=== PATIENT | male | born 1975 | race Caucasian/White ===

== ENCOUNTER 2021-05-21 11:44 | Inpatient (IN) | payer OTHER ==
[~2021-05-21] VITALS: Ht 180.3 cm; Wt 77.1 kg
[2021-05-21 13:01] LABS: RED BLOOD COUNT 3.9 M/UL (4.20-5.50); WHITE BLOOD COUNT 7.7 K/UL (4.5-11.0)
[2021-05-21 14:53] LABS: BUN/CREATININE RATIO 22 (0-10)
[2021-05-22] MEDS ORDERED: GABAPENTIN800 MG PO (09:46)
[2021-05-22] MEDS ORDERED: LISINOPRIL-HCT1 EAC1 PO (09:47)
[2021-05-22] MEDS ORDERED: TOPROL XL50 MG PO (09:48)
--- NOTE | 2021-05-23 06:15 | NUR ---
CALLED LAB TO ASK ABOUT THE VANC TROUGH AT 0610. STATED IT WAS DRAWN BUT SHE HASN'T RECEIVED IT YET.
[2021-05-23 06:31] LABS: HEMOGLOBIN 10.1 gm/dl (14.0-17.5); RED BLOOD COUNT 3.7 M/UL (4.20-5.50); WHITE BLOOD COUNT 8.6 K/UL (4.5-11.0)
[2021-05-23 07:23] LABS: BUN/CREATININE RATIO 14 (0-10)
[2021-05-24] MEDS ORDERED: CLOBETASOL 0.0560 GM TP (03:33)
[2021-05-24 07:26] LABS: HEMOGLOBIN 9.8 gm/dl (14.0-17.5); RED BLOOD COUNT 3.56 M/UL (4.20-5.50); WHITE BLOOD COUNT 9.8 K/UL (4.5-11.0)
[2021-05-24 08:00] LABS: BUN/CREATININE RATIO 22 (0-10)
[2021-05-25 03:42] LABS: HEMOGLOBIN 9.7 gm/dl (14.0-17.5); RED BLOOD COUNT 3.58 M/UL (4.20-5.50)
[2021-05-25 03:46] LABS: WHITE BLOOD COUNT 5.4 K/UL (4.5-11.0)
[2021-05-25 04:27] LABS: BUN/CREATININE RATIO 22 (0-10)
[2021-05-25] MEDS ORDERED: METOPROLOL SUCC25 MG PO (10:04)
[2021-05-25] MEDS ORDERED: HYDROCODON-ACE1 EAC2 PO (10:31)
[2021-05-25] MEDS ORDERED: BACTRIM DS TAB1 EACH PO (10:31)
[2021-05-25] MEDS ORDERED: POTASSIUM CHLO10 MEQ PO (10:31)
== END 2021-05-25 14:10 | disposition home or self-care (01) | DRG 854 ==
LOC: ER1 11:44 → MED SURG 4 17:45 → CDU 17:45 → MED SURG 4 05-22 08:03
PROVIDERS: Internal Medicine; Orthopaedic Surgery; Physician Assistant Medical; ADMIT Internal Medicine Infectious Disease
PROC: 0MB30ZZ Excision of Right Elbow Bursa and Ligament, Open Approach (ICD-10-PCS; 2021-05-23)
PROC: 0M930ZZ Drainage of Right Elbow Bursa and Ligament, Open Approach (ICD-10-PCS; principal; 2021-05-23 11:00)
DX: A41.9 Sepsis, unspecified organism (principal); F11.20 Opioid dependence, uncomplicated; L03.113 Cellulitis of right upper limb; M71.141 Other infective bursitis, right hand; Z20.822 Contact with and (suspected) exposure to COVID-19; Z79.899 Other long term (current) drug therapy; G89.4 Chronic pain syndrome
CPT/HCPCS: 36415; 73201; 80053; 80202; 83605; 84132; 85025; 85652; 86140; 87040; 87070; 87077; 87186; 87205; 96374; 96375; 99283; J0692; J1100; J1170; J2250; J2270; J2405; J2704; J3010; J3370; J7030; J7070; J7120; Q9967; U0002